=== PATIENT | male | born 1995 | race American Indian/Alaskan Native ===

== ENCOUNTER 2018-10-20 15:28 | Emergency (ER) | payer SELFPAY ==
--- NOTE | 2018-10-20 15:40 | Emergency Department Report ---
Blank Doc - Documentation Documentation: This is a 23-year-old male that presents with finger lac. This initial assessment/diagnostic orders/clinical plan/treatment(s) is/are subject to change based on patient's health status, clinical progression and re- assessment by fellow clinical providers in the ED. Further treatment and workup at subsequent clinical providers discretion. Patient/guardians urged not to elope from the ED as their condition may be serious if not clinically assessed and managed. Initial orders include: 1- Patient sent to [facility] for further evaluation and treatment
--- NOTE | 2018-10-20 15:54 | Emergency Department Report ---
ED Laceration HPI - HPI Chief Complaint: Wound/Laceration Stated Complaint: CUT ON FINGER Time Seen by Provider: 10/20/18 15:39 Occurred When: Yesterday Location: Upper Extremity Severity: mild Tetanus Status: Up to Date Laceration Symptoms: No Foreign Body Sensation, No Numbness, No Weakness, No Pain Other History: Patient is a 23-year-old male who comes to the ER today after cutting his finger on a pocket knife yesterday. He has a superficial laceration of his right middle finger. no other injury. neurovasc intact ED Review of Systems ROS: Stated complaint: CUT ON FINGER Other details as noted in HPI Comment: All other systems reviewed and negative ED Past Medical Hx - Past Medical History Previous Medical History?: No - Surgical History Past Surgical History?: No - Family History Family history: no significant - Social History Smoking Status: Current Every Day Smoker Substance Use Type: None Laceration Physical Exam - Exam General: Vital signs noted. No distress. Alert and acting appropriately. alert and oriented s1s2 lungs cta abd soft non tender Wound Length (cm): 2 Laceration Exam: Yes Normal Distal CMS, No Foreign Body, No Exposed Tendon, Vessel, or Nerve, No Tendon Injury ED Course Vital Signs 10/20/18 15:34 Temperature 98.3 F Pulse Rate 85 Respiratory 18 Rate Blood Pressure 131/74 O2 Sat by Pulse 98 Oximetry - Laceration /Wound Repair finger r Wound Location: upper extremity Irrigated w/ Saline (ccs): 2 Betadine Prep?: Yes Wound Debrided: minimal Wound Repaired With: Steri-strips, Dermabond Layer Closure?: No Sterile Dressing Applied?: Yes Progress: tolerated well ED Medical Decision Making - Medical Decision Making superficial wound wound care provided lac repair finger splint wound care instructions given tdap is utd dc home with dc plan of care Vital Signs 10/20/18 15:34 Temperature 98.3 F Pulse Rate 85 Respiratory 18 Rate Blood Pressure 131/74 O2 Sat by Pulse 98 Oximetry Critical care attestation.: If time is entered above; I have spent that time in minutes in the direct care of this critically ill patient, excluding procedure time. ED Disposition Clinical Impression: Laceration Disposition: DC-01 TO HOME OR SELFCARE Is pt being admited?: No Does the pt Need Aspirin: No Condition: Stable Instructions: Laceration (ED) Additional Instructions: wash in 24 hours with soap and water keep clean and dry dressing changes as instructed motrin or tylenol for pain Referrals: [facility] [Outside] - 3-5 Days Time of Disposition: 16:02
[2018-10-20 16:24] VITALS: BP 130/84
== END 2018-10-20 16:22 | disposition home or self-care (01) ==
LOC: ED 15:28
DX: S61.212A Laceration without foreign body of right middle finger without damage to nail, initial encounter (principal); F17.200 Nicotine dependence, unspecified, uncomplicated; W26.0XXA Contact with knife, initial encounter; Y93.89 Activity, other specified; Y92.89 Other specified places as the place of occurrence of the external cause; Y99.8 Other external cause status
CPT/HCPCS: 99282